=== PATIENT | female | born 1935 | race Caucasian/White ===

== ENCOUNTER 2016-03-10 09:59 | Outpatient (CLI) | payer MEDICARE ==
[2012-07-17 10:23] VITALS: BP 142/60
== END 2016-03-10 10:10 ==
LOC: CARD 09:59
PROVIDERS: ATTEND Nurse Practitioner
DX: I35.0 Nonrheumatic aortic (valve) stenosis (principal); R01.0 Benign and innocent cardiac murmurs; I25.10 Atherosclerotic heart disease of native coronary artery without angina pectoris
CPT/HCPCS: G0463

== ENCOUNTER 2017-05-23 09:50 | Outpatient (CLI) | payer MEDICARE ==
[2012-07-17 10:23] VITALS: BP 142/60
[2017-05-23 10:13] LABS: BASOPHILS % 0.4 (0.0-1.5); EOSINOPHILS % 2.2 % (0.0-6.8); MEAN CORPUSCULAR HEMOGLOBIN 29.6 pg (28.0-34.0); MEAN CORPUSCULAR VOLUME 92.5 fl (80.0-100.0); MONOCYTES % 5.2 % (0.0-11.0); NEUTROPHILS # 4.3 # k/uL (1.4-7.7)
[2017-05-23 10:55] LABS: eGFR (African) > 60; eGFR (Non-African) > 60
== END 2017-05-23 09:52 ==
LOC: LAB 09:50
PROVIDERS: ATTEND Nurse Practitioner
DX: E78.00 Pure hypercholesterolemia, unspecified (principal); I10 Essential (primary) hypertension; I25.10 Atherosclerotic heart disease of native coronary artery without angina pectoris; I35.0 Nonrheumatic aortic (valve) stenosis; I48.0 Paroxysmal atrial fibrillation; E11.9 Type 2 diabetes mellitus without complications
CPT/HCPCS: 36415; 80053; 80061; 83036; 84443; 85025

== ENCOUNTER 2017-09-17 07:52 | Emergency (ER) | payer MEDICARE ==
--- NOTE | 2017-09-17 08:06 | ED Physician Documentation ---
General Adult - HISTORIAN Historian: patient - HPI Stated Complaint: fall on Sat - pain on right lower back and right chest Chief Complaint: Fall Onset: days ago (2) Timing: better Severity: mild Further Comments: yes (She reports she fell in a rest stop - she feels she just slipped - denies any dizziness. she did not hit her head. She states she has pain on her right lower back (no loss of control of bowel or bladder) and pain on right chest she fell on her right breast.) - ROS CONST: no problems EYES/ENT: denies: problems with vision CVS/RESP: chest pain (right sided chest ) GI/: denies: abdominal pain, problems urinating, vomiting, nausea, diarrhea MS/SKIN/LYMPH: none NEURO/PSYCH: denies: headache, fainting, dizziness - PAST HX Past History: other (back pain CAD ) Surgeries/Procedures: cardiac stent, other (Bilateral knee replacement ) Immunizations: UTD Allergies/Adverse Reactions: Allergies Allergy/AdvReac Type Severity Reaction Status Date / Time No Known Allergies Allergy Verified 09/17/17 08:13 Home Medications: Ambulatory Orders Medication Instructions Recorded Amlodipine Besylate [Norvasc] 5 mg PO DAILY u2 05/09/12 Isosorbide Mononitrate 30 mg PO DAILY u2 05/09/12 Lisinopril [Prinivil] 40 mg PO DAILY u2 05/09/12 Metoprolol Tartrate [Lopressor] 25 mg PO DAILY u2 05/09/12 - SOCIAL HX Smoking History: non-smoker Alcohol Use: none Drug Use: none - FAMILY HX Family History: No - VITAL SIGNS Vital Signs: Vital Signs Temp Pulse Resp BP Pulse Ox 142/60 07/17/12 11:34 - REVIEWED ASSESSMENTS Nursing Assessment Reviewed: Yes Vitals Reviewed: Yes Progress - Progress Progress: 0915: results discussed. Pt and spouse are aware. No need for Ibuprofen at this time per her request DG ED Results Lab/Radiology - Radiology Radiology Impressions: PA and lateral chest History: Chest pain. Recent fall. PA and lateral chest dated September 17, 2017 demonstrates moderate cardiomegaly. Aortic atherosclerosis is present. Pulmonary vascularity is normal. There is no confluent infiltrate or pleural effusion. Kyphosis of the thoracic spine is present. Kyphoplasty material is present within a single vertebral body at the thoracolumbar junction. Impression: No active disease. Moderate cardiomegaly. Electronically signed on Sep 17, 2017 9:05:31 AM CDT by: Shauan Hammonds Lumbar spine History: Pain after fall AP and lateral projections of the lumbar spine were obtained which demonstrate kyphoplasty material within the L1 vertebral body. There is prominent ossific density in the right paraspinous location after L4 and L5 levels, probably bone grafting material from a prior lumbar surgery. There is moderate osteoarthritis of the left hip. No acute osseous abnormalities of the lumbar spine are noted. The lateral radiographs are limited/rotated. Impression: Kyphoplasty material of the L1 vertebral body. Apparent bone grafting material in the right paravertebral location at L4 and L5. Rotated lateral radiographs. No acute osseous abnormalities are seen. Electronically signed on Sep 17, 2017 9:08:41 AM CDT by: Shauna Hammonds General Adult Physical Exam - PHYSICAL EXAM GENERAL APPEARANCE: no distress EENT: eye inspection normal NECK: normal inspection RESPIRATORY: no resp distress, chest non-tender, breath sounds normal CVS: reg rate & rhythm, murmur ABDOMEN: soft, normal bowel sounds, no distension, non-tender BACK: other (Bruises noted on right lower flank area - kyphosis (She does wear a back brace from this ) ) SKIN: warm/dry, normal color EXTREMITIES: non-tender, normal range of motion, no evidence of injury, edema (1 +) NEURO: oriented X3, CN's nml as tested, motor nml, sensation nml, mood/affect nml, cognition normal Discharge Clincal Impression: Fall Qualifiers: Encounter type: initial encounter Qualified Code(s): W19.XXXA - Unspecified fall, initial encounter Referrals: Deandra Spaulding MD [Primary Care Provider] - 2 Days Additional Instructions: 1. Continue with back brace 2. Tylenol or Ibuprofen as needed for pain 3. See PCP in 2-4 days 4. Return to ER for any concerns Condition: Stable Disposition: 01 HOME, SELF-CARE Decision to Admit: NO Date of Decison to Admit: 09/17/17 Decision Time: :18
[2017-09-17 08:21] VITALS: BP 132/69
--- NOTE | 2017-09-17 10:37 | Diagnostic Imaging Report ---
DONTE BATES [facility] [address] [facility] [address] [place], [place]. [address] Report Submission Date: Sep 17, 2017 9:05:31 AM CDT Patient Study Name: MARLENY King Date: Sep 17, 2017 8:25:00 AM CDT Modality Type: DX Gender: F Description: CHEST : 35 Institution: [facility] Physician: DONTE BATES PA and lateral chest History: Chest pain. Recent fall. PA and lateral chest dated September 17, 2017 demonstrates moderate cardiomegaly. Aortic atherosclerosis is present. Pulmonary vascularity is normal. There is no confluent infiltrate or pleural effusion. Kyphosis of the thoracic spine is present. Kyphoplasty material is present within a single vertebral body at the thoracolumbar junction. Impression: No active disease. Moderate cardiomegaly. Electronically signed on Sep 17, 2017 9:05:31 AM CDT by: Shauna GU
--- NOTE | 2017-09-17 10:39 | Diagnostic Imaging Report ---
DONTE BATES [facility] [address] [facility] [address] [address] Report Submission Date: Sep 17, 2017 9:08:41 AM CDT Patient Study Name: MARLENY King Date: Sep 17, 2017 8:33:00 AM CDT Modality Type: DX Gender: F Description: SPINE : 35 Institution: [facility] Physician: DONTE BATES Lumbar spine History: Pain after fall AP and lateral projections of the lumbar spine were obtained which demonstrate kyphoplasty material within the L1 vertebral body. There is prominent ossific density in the right paraspinous location after L4 and L5 levels, probably bone grafting material from a prior lumbar surgery. There is moderate osteoarthritis of the left hip. No acute osseous abnormalities of the lumbar spine are noted. The lateral radiographs are limited/rotated. Impression: Kyphoplasty material of the L1 vertebral body. Apparent bone grafting material in the right paravertebral location at L4 and L5. Rotated lateral radiographs. No acute osseous abnormalities are seen. Electronically signed on Sep 17, 2017 9:08:41 AM CDT by: Shauna GU
== END 2017-09-17 09:23 | disposition home or self-care (01) ==
LOC: ED 07:52
DX: M54.5 Low back pain (principal); R07.89 Other chest pain; W19.XXXA Unspecified fall, initial encounter; Y92.481 Parking lot as the place of occurrence of the external cause; Y93.01 Activity, walking, marching and hiking; Y99.9 Unspecified external cause status
CPT/HCPCS: 71046; 72100; 99283

== ENCOUNTER 2017-09-24 12:26 | Outpatient (CLI) | payer MEDICARE ==
--- NOTE | 2017-09-24 16:17 | Diagnostic Imaging Report ---
ANGELA CASTLE [facility] [address] [facility] [address] [place], [place]. [address] Report Submission Date: Sep 24, 2017 1:16:28 PM CDT Patient Study Name: MARLENY King Date: Sep 24, 2017 12:41:00 PM CDT Modality Type: CT\SR Gender: F Description: CT ABD PELVIS W/O CO : 35 Institution: [facility] Physician: ANGELA CASTLE CT abdomen and pelvis without contrast History: The patient is on Eliquis and recently fell with worsening right flank pain Technique: Helically acquired images were obtained from the hemidiaphragms to the pelvic floor without IV or oral contrast. Findings: There is minor linear density of the right middle lobe consistent with mild scarring versus atelectasis. The heart is enlarged. Coronary artery calcifications are present. There is no pericardial or pleural effusion. On these images without IV contrast, which limits solid organ evaluation, the liver, spleen, adrenal glands and the pancreas are unremarkable. The gallbladder is partly filled with stones. There is no hydronephrosis. No renal stones are noted. No ureteral stones are seen. Aorta iliac atherosclerosis is present without aneurysm. No tone hematoma is noted. The uterus is mildly large for age but adnexal structures are unremarkable. Bladder configuration is normal. There has been a kyphoplasty of L1. There is a grade 1 anterolisthesis of the L3 relative to L4. Impression: Cardiomegaly with coronary artery calcifications. The gallbladder is partly filled with stones. No flank hematoma is seen. No renal or ureteral stones are seen. Not mentioned above, the uterus is mildly large for age. Consider follow-up nonemergent pelvic ultrasound for further assessment. Electronically signed on Sep 24, 2017 1:16:28 PM CDT by: Shauna GU
== END 2017-09-24 12:28 ==
LOC: RAD 12:26
PROVIDERS: ATTEND Family Medicine
DX: R10.9 Unspecified abdominal pain (principal)
CPT/HCPCS: 74176

== ENCOUNTER 2017-10-12 13:28 | Outpatient (CLI) | payer MEDICARE ==
[2017-10-12 14:41] LABS: BASOPHILS % 0.4 (0.0-1.5); EOSINOPHILS % 1.5 % (0.0-6.8); MEAN CORPUSCULAR VOLUME 94.8 fl (80.0-100.0); MONOCYTES % 4.3 % (0.0-11.0); NEUTROPHILS # 3.9 # k/uL (1.4-7.7)
== END 2017-10-12 13:30 ==
LOC: LAB 13:28
PROVIDERS: ATTEND Family Medicine
DX: Z51.81 Encounter for therapeutic drug level monitoring (principal); M54.5 Low back pain
CPT/HCPCS: 36415; 85025; 85610; 85651; 85730

== ENCOUNTER 2017-11-21 14:31 | Outpatient (CLI) | payer MEDICARE ==
--- NOTE | 2017-11-22 11:03 | OP Clinic Progress Note ---
REASON FOR VISIT: This 82-year-old lady in a wheelchair is seen accompanied by her . She has had, a little vague on how long, a lesion on the left side of her tongue that has bothered her. It may be over several months. She takes Eliquis. There is a cornified 2 mm slightly firm projection on the lateral aspect of the tongue on the left side. There is no other evident mass or lesion. It is more or less at the junction of the anterior third in the middle two-thirds. Juxtaposed to this is an isolated "snaggletooth." It has an extremely sharp, rough surface, almost knife-like. This smooth, somewhat cornified lesion does not look obviously malignant. My first estimation would be it has a high probability of being caused by the "snaggletooth" with sharp edges on the left side. PLAN: My first recommendation would be to see the dentist to have that tooth significantly smoothed over. If it does not resolve and it still bothers the patient, it could be removed in the clinic under local anesthetic. I would probably ask her to reduce her anticoagulation that she has by history. So I have given her an appointment for appropriate follow up in about 6 weeks. cc: Dr. Deandra GU
== END 2017-11-21 14:33 ==
LOC: ENT 14:31
PROVIDERS: ATTEND Otolaryngology
DX: K14.8 Other diseases of tongue (principal)
CPT/HCPCS: G0463

== ENCOUNTER 2018-01-08 10:03 | Outpatient (CLI) | payer MEDICARE ==
[2018-01-08 11:14] LABS: eGFR (Non-African) > 60
== END 2018-01-08 10:04 ==
LOC: LAB 10:03
PROVIDERS: ATTEND Family Medicine
DX: E11.9 Type 2 diabetes mellitus without complications (principal)
CPT/HCPCS: 36415; 80048; 83036

== ENCOUNTER 2018-02-06 11:35 | Outpatient (CLI) | payer MEDICARE ==
[2018-02-06 12:46] LABS: eGFR (Non-African) 42
--- NOTE | 2018-02-07 03:46 | Diagnostic Imaging Report ---
RENEE CASAREZ [facility] [address] [facility] [address] [address] Report Submission Date: Feb 06, 2018 6:54:41 PM OFFLINE CUTTER Patient Study Name: MARLENY King Date: Feb 06, 2018 12:06:33 PM OFFLINE CUTTER Modality Type: DX Gender: F Description: ABDOMEN : 35 Institution: [facility] Physician: RENEE CASAREZ Abdomen AP view. History: Pain with recent fall 2 weeks prior. Findings: The bowel gas pattern is normal with gas present in the colon also partially distending the stomach. No small bowel dilation present to suggest obstruction. There is vertebroplasty change noted at L1 and L2. Numerous rounded calcifications are present clustered within the right mid abdomen just to the right of the L4-L5 level, representing cholelithiasis. Impression: 1. Nonobstructive bowel gas pattern. 2. Evidence of previous vertebroplasty at L1 and L2. 3. Cholelithiasis. Electronically signed on Feb 06, 2018 6:54:41 PM OFFLINE CUTTER by: Santo GU
== END 2018-02-06 11:36 ==
LOC: LAB 11:35
PROVIDERS: ATTEND Family Medicine
DX: K80.20 Calculus of gallbladder without cholecystitis without obstruction (principal); R10.84 Generalized abdominal pain; R11.0 Nausea
CPT/HCPCS: 36415; 74018; 80048

== ENCOUNTER 2018-04-09 09:31 | Outpatient (CLI) | payer MEDICARE ==
[2018-04-09 09:52] LABS: MEAN CORPUSCULAR HEMOGLOBIN 30.4 pg (28.0-34.0)
[2018-04-09 12:00] LABS: eGFR (Non-African) > 60
== END 2018-04-09 09:40 ==
LOC: LAB 09:31
PROVIDERS: ATTEND Family Medicine
DX: E11.9 Type 2 diabetes mellitus without complications (principal); Z86.2 Personal history of diseases of the blood and blood-forming organs and certain disorders involving the immune mechanism
CPT/HCPCS: 36415; 80053; 80061; 83036; 85027

== ENCOUNTER 2018-06-28 09:49 | Inpatient (IN) | payer MEDICARE ==
[2018-06-28 10:54] LABS: BASOPHILS % 0.2 % (0.0-1.5); EOSINOPHILS % 3.3 % (0.0-6.8); MEAN CORPUSCULAR HEMOGLOBIN 29.8 pg (28.0-34.0); MONOCYTES % 7.2 % (0.0-11.0); NEUTROPHILS # 4.1 # k/uL (1.4-7.7)
[2018-06-28 11:10] LABS: eGFR (Non-African) 33
--- NOTE | 2018-06-28 11:13 | Diagnostic Imaging Report ---
DONTE BATES [facility] [address] [facility] [address] [address] [place], [place]. [address] Report Submission Date: Jun 28, 2018 11:09:30 AM CDT Patient Study Name: DARBY FARMER Date: Jun 28, 2018 10:06:00 AM CDT Modality Type: DX Gender: F Description: CHEST 2VIEW : 35 Institution: [facility] Physician: DONTE BATES Examination: PA and lateral chest. History: Evaluate lung verduzco. Comparison exam: 17 September 2017 Findings: PA and lateral views of the chest demonstrates a prominent cardiac and mediastinal silhouette. Tortuous aorta with vascular calcifications. Interstitial prominence. Blunting of the left costophrenic margin. Vertebral body kyphoplasty. Kyphosis. Impression: Increased interstitial markings associated with left base effusion - likely congestive edema. Electronically signed on Jun 28, 2018 11:09:30 AM CDT by: Donaldo GU
[2018-06-28] MEDS ORDERED: FUROSEMIDE 40 MG/4 ML VIAL IVP ONE (11:55)
[2018-06-28 12:00] VITALS: BMI 32.5
[2018-06-28] MEDS ORDERED: 0.9 % SODIUM CHLORIDE 1,000 ML IV SCH (12:00)
--- NOTE | 2018-06-28 12:14 | History and Physical Report ---
History of Present Illnes - History of Present Illness Reason for Visit: Shortness of Breath History of Present Illness: Patient is an 83-year-old female who was seen at the clinic today with c/o shortness of breath that started 3 weeks ago with worsening over the last week. She c/o fatigue and non-productive cough. She is on lasix but states that she only takes it sometimes. She states that she always has swelling in her legs- however, more so over the last couple of days. 17:00 We have been unable to keep an IV in patient- we were able to give IV lasix- IV attempts > 10; ADA ACCOMMODATION CONSULTANT in attempting IV with ultrasound. Talked with patient about transfer to [facility] if not able to get IV 17:28 IV attempt by ADA ACCOMMODATION CONSULTANT with ultrasound unsuccessful 17:30 Spoke with laundry housekeeping aide at [facility] for possible transfer 18:05 Dr. Yates will accept patient- talked with patient and family about acceptance - Past Medical History Cardiac: AFIB, CAD, HTN, Hyperlipidemia Pulmonary: Other (HX of DVT) Endocrine: Diabetes, obesity - Past Surgical History Past Surgical History: , Total Knee Replacement (Lt in 1995 and Rt 2011) - Past Social History Smoke: No Alcohol: None Drugs: None Lives: With Family Domestic Violence: Negative - Health Maintenance Health Maintenance: Influenza Vaccine, Pneumococcal Vaccine Influenza Vaccine: Current for this Influenza Season Pneumonia Vaccine: Yes Resuscitation Status: Full code Review of Systems - Review of Systems Constitutional: Chills, Weakness. negative: Fever Eyes: negative: conjunctivae inflammation, eyelid inflammation ENT: negative: Ear Pain, Nose Discharge, Throat Pain Respiratory: Cough, Shortness of Breath, SOB with Excertion Cardiovascular: Paroxysmal Noc. Dyspnea, Edema Gastrointestinal: negative: Nausea, Vomiting, Diarrhea Genitourinary: negative: Dysuria Musculoskeletal: negative: Back Pain Skin: Other (swelling to lower extremities with dry scaly skin) Neurological: Weakness - Medications/Allergies Allergies/Adverse Reactions: Allergies Allergy/AdvReac Type Severity Reaction Status Date / Time No Known Allergies Allergy Uncoded 12/19/11 23:05 Home Medications: Home Medications Metformin HCl 500 mg PO DAILY 06/28/18 Current Inpatient Medications: Current Inpatient Medications Albuterol/Ipratropium (Duoneb) 3 ml NEB Q4 AMADEO Furosemide (Lasix) 20 mg IVP 714 AMADEO Sodium Chloride (Normal Saline) 1,000 mls @ 100 mls/hr IV Q10H AMADEO Exam - Exam Vital Signs: Vital Signs (72 hours) 06/28/18 06/28/18 11:55 11:56 Temperature 97.8 F 97.8 F Pulse Rate [ 65 65 Left] Respiratory 22 22 Rate Blood Pressure 133/99 133/99 [Left Arm] O2 Sat by Pulse 92 92 Oximetry General: Alert, Oriented to Person, Oriented to Place, Oriented to Time, Cooperative, Moderate distress, Obese HEENT: PERRLA, Nose Mucous membr. moist/[place] Neck: Normal Range of Motion Carotids: No bruit Lungs: Rales (bibasilar) Cardiovascular: Normal S1, Normal S2 Peripheral Edema: 3+ to lower extremities up to the knees Peripheral Pulses: diminished but palpable Abdomen: Distended Integumentary: Warm, Dry, Pale Extremities: No cyanosis Neurological: Normal gait (uses cane), Normal speech, Strength Equal Bilat, Sensation intact, Generalized Weakness Psych/Mental Status: Mental status NL, Mood NL, Appropriate Affect, Intact Judgment - Laboratory Results Laboratory Results: Laboratory Results 06/28/18 06/28/18 06/28/18 09:55 09:55 10:32 WBC 5.80 RBC 3.29 L Hgb 9.8 L Hct 30.0 L MCV 91.0 MCH 29.8 MCHC 32.7 RDW 14.9 H Plt Count 190 Neut % (Auto) 70.8 Lymph % (Auto) 18.5 Davidson % (Auto) 7.2 Eos % (Auto) 3.3 Baso % (Auto) 0.2 Neut # (Auto) 4.1 Lymph # (Auto) 1.1 Davidson # (Auto) 0.4 Eos # (Auto) 0.2 Baso # (Auto) 0.0 Sodium 140 Potassium 4.7 Chloride 108 H Carbon Dioxide 28 BUN 42 H Creatinine 1.57 H Est GFR ( Amer) 40 L Est GFR (Non-Af Amer) 33 L Glucose 100 Calcium 8.5 Total Bilirubin 0.9 AST 30 ALT 20 Alkaline Phosphatase 142 H NT-Pro-B Natriuret Pep 7430.0 H Total Protein 6.4 Albumin 3.5 Assessment/Plan - Assessment/Plan (1) Shortness of breath on exertion Status: Acute Current Visit: Yes Plan: Will implement supplemental oxygen as needed, IV lasix for edema, will implement HFNs (2) Hypertension Status: Acute Current Visit: Yes Qualifiers: Hypertension type: essential hypertension Qualified Code(s): I10 - Essential (primary) hypertension Plan: Will continue with home medications (3) Type 2 diabetes mellitus Status: Acute Current Visit: Yes Qualifiers: Diabetes mellitus middle or intermediate school principal insulin use: without senior care use Plan: Will check blood sugars ac & hs and continue with home medications (4) Ileus, unspecified Status: Acute Current Visit: Yes Plan: Will make patient NPO- start IVF VTE Assessment - RISK FACTOR SCORE VTE RISK FACTOR SCORES: AGE OVER 60 YEARS, OBESITY - RISK VTE MODERATE RISK: SCORE OF 2 (RISK PROXIMAL DVT 2-4%) PROPHYAXIS NEEDED (pt is on eliquis)
[2018-06-28] MEDS: IPRATROPIUM/ALBUTEROL SULFATE 3 ML AMPUL.NEB NEB SCH ×2 (14:30→17:45)
[2018-06-28 17:54] LABS: APPEARANCE,URINE CLEAR (CLEAR); COLOR,URINE YELLOW (YELLOW); OCCULT BLOOD,URINE NEGATIVE (NEGATIVE); UROBILINOGEN URINE 0.2 Eu (0.2-1.0)
--- NOTE | 2018-06-28 18:47 | Discharge Summary ---
Discharge Summary - Discharge [facility] Admission Date: 06/28/18 Discharge Date: 06/28/18 History of Present Illness: Patient is an 83-year-old female who was seen at the clinic today with c/o shortness of breath that started 3 weeks ago with worsening over the last week. She c/o fatigue and non-productive cough. She is on lasix but states that she only takes it sometimes. She states that she always has swelling in her legs- however, more so over the last couple of days. 17:00 We have been unable to keep an IV in patient- we were able to give IV lasix- IV attempts > 10; OUTSIDE MAINTENANCE WORKER in attempting IV with ultrasound. Talked with patient about transfer to [facility] if not able to get IV 17:28 IV attempt by OUTSIDE MAINTENANCE WORKER with ultrasound unsuccessful 17:30 Spoke with warehouse assembly worker at [facility] for possible transfer 18:05 Dr. Yates will accept patient- talked with patient and family about acceptance Condition at Discharge: Stable Home Medications: Ambulatory Orders Medication Instructions Recorded Amlodipine Besylate [Norvasc] 5 mg PO DAILY u2 05/09/12 Lisinopril [Prinivil] 40 mg PO DAILY u2 05/09/12 Metoprolol Tartrate [Lopressor] 25 mg PO DAILY u2 05/09/12 Metformin HCl 500 mg PO DAILY 06/28/18 Consultations this Visit: None Procedures this Visit: None Allergies/Adverse Reactions: Allergies Allergy/AdvReac Type Severity Reaction Status Date / Time No Known Allergies Allergy Uncoded 12/19/11 23:05 Patient Problems: Current Active Problems Problem Status Onset Hypertension Acute Ileus, unspecified Acute Shortness of breath on exertion Acute Type 2 diabetes mellitus Acute Discharge Summary: Many attempts to obtain IV access with no success- pt was transferred to [facility] for CHF & Ileus - Final Diagnosis (1) Shortness of breath on exertion Problems: Stable at rest Right or Left: Right (2) Hypertension Problems: stable Right or Left: Right (3) Type 2 diabetes mellitus Problems: Stable Right or Left: Right (4) Ileus, unspecified Problems: Transferring Right or Left: Right
[2018-06-28 18:59] VITALS: BP 131/59
--- NOTE | 2018-06-28 19:08 | Diagnostic Imaging Report ---
KRYSTIN HUERTA [facility] [address] [facility] [address] [address] Report Submission Date: Jun 28, 2018 3:27:25 PM CDT Patient Study Name: DARBY FARMER Date: Jun 28, 2018 2:26:39 PM CDT Modality Type: DX Gender: F Description: ABDOMEN 1VIEW : 35 Institution: [facility] Physician: KRYSTIN HUERTA EXAMINATION: ABDOMEN 1VIEW HISTORY: KUB, ABDOMINAL DISTENTION COMPARISON: None FINDINGS: A majority of the colon is distended with gas. There is cholelithiasis. The lung bases are clear. The visible osseous structures are intact. L1 and L2 vertebroplasty have been performed. IMPRESSION: Gaseous distention of the colon, likely representing ileus. Electronically signed on Jun 28, 2018 3:27:25 PM CDT by: Luigi GU
[2018-06-28] MEDS ORDERED: ATORVASTATIN CALCIUM 20 MG TABLET PO SCH (21:00)
[2018-06-28] MEDS ORDERED: APIXABAN 5 MG TABLET PO SCH (21:00)
[2018-06-29] MEDS ORDERED: FUROSEMIDE 20 MG/2 ML VIAL IVP SCH (07:00)
[2018-06-29] MEDS ORDERED: metFORMIN HCl 500 MG TABLET PO SCH (07:30)
[2018-06-29] MEDS ORDERED: LISINOPRIL 10 MG TABLET PO SCH (09:00)
[2018-06-29] MEDS ORDERED: METOPROLOL SUCCINATE 50 MG TAB.ER.24H PO SCH (09:00)
[2018-06-29] MEDS ORDERED: SERTRALINE HCL 50 MG TABLET PO SCH (09:00)
[2018-06-29] MEDS ORDERED: ISOSORBIDE MONONITRATE 30 MG TAB.ER.24H PO SCH (09:00)
== END 2018-06-28 18:45 | disposition short-term general hospital (02) | DRG 390 ==
LOC: LAB 09:49 → SOUTH 11:22
PROVIDERS: ADMIT Nurse Practitioner Family; ATTEND Nurse Practitioner Family
DX: K56.7 Ileus, unspecified (principal); I10 Essential (primary) hypertension; E11.9 Type 2 diabetes mellitus without complications; R53.83 Other fatigue; R60.0 Localized edema; Z86.718 Personal history of other venous thrombosis and embolism
CPT/HCPCS: 36415; 71046; 74018; 80053; 81002; 83880; 85025; 93005; J1940; J7030; 99235; S1016

== ENCOUNTER 2019-02-10 11:34 | Outpatient (CLI) | payer MEDICARE ==
--- NOTE | 2019-02-10 12:34 | Diagnostic Imaging Report ---
PATIENT MR#: [id number] PATIENT PATIENT NAME: DARBY FARMER DATE OF : 1935 REFERRING PHYSICIAN: Yoel Cabrera EXAM DATE: 02/10/2019 ACCESSION NUMBER: [id number] EXAM DESCRIPTION: US U OR L EXT VEINS UNILAT Examination: Ultrasound left vein History: LEFT LEG SWELLING HISTORY: PAIN, SWELLING, REDDNESS, BUMPS LLE x1 WEEK Findings: Sonographic evaluation of the left lower extremity venous system from the groin to the popl iteal fossa inclusive. Normal compressibility. No luminal filling defect. Normal waveforms and response to augmen tation. No popliteal region fluid collection. Impression: No evidence for deep venous thrombosis. Read by: Dr. Donaldo Mcintyre Transcribed by: Wayne Peters Transcribed Date: 02/10/2019 12:33:48 PM Electronically signed by: Dr. Donaldo Mcintyre Date signed: 02/10/2019 12:33:48 PM
== END 2019-02-10 11:44 ==
LOC: RAD 11:34
PROVIDERS: ATTEND Family Medicine
DX: M79.89 Other specified soft tissue disorders (principal)
CPT/HCPCS: 93971